=== PATIENT | male | born 1965 | race African-American/Black ===

== ENCOUNTER → 2020-04-03 | Outpatient (CLI) | payer OTHER ==
[~2020-04-03] MED LIST: DAYPRO600 M1 PO; VICODIN 500 MG-1 TAB PO
== END | disposition home or self-care (01) ==
LOC: CARD 14:00
PROVIDERS: ATTEND Internal Medicine Cardiovascular Disease
DX: I42.8 Other cardiomyopathies (principal); I42.0 Dilated cardiomyopathy; R06.02 Shortness of breath; Z95.810 Presence of automatic (implantable) cardiac defibrillator